=== PATIENT | female | born 1955 | race Caucasian/White ===

== ENCOUNTER → 2020-02-16 | Outpatient (CLI) | payer OTHER ==
--- NOTE | 2020-02-17 13:38 | MM ---
Reason for exam: screening (asymptomatic). Last mammogram was performed 2 years and 5 months ago. History: Patient is postmenopausal. Benign excisional biopsy of the right breast, 1989. Physical Findings: A clinical breast exam by your physician is recommended on an annual basis and results should be correlated with mammographic findings. MG Screening Mammo w CAD Bilateral CC and MLO view(s) were taken. Prior study comparison: September 11, 2017, bilateral MG screening mammo w CAD. June 25, 2016, bilateral MG screening mammo w CAD. The breast tissue is heterogeneously dense. This may lower the sensitivity of mammography. There is a tiny chronic nodularity in the left breast. There is no discrete abnormality. ASSESSMENT: Negative, BI-RAD 1 RECOMMENDATION: Routine screening mammogram of both breasts in 1 year.
== END | disposition home or self-care (01) ==
LOC: MERGE 11-01 08:40 → RADMAMWWP 16:44
PROVIDERS: ATTEND Family Medicine
DX: Z12.31 Encounter for screening mammogram for malignant neoplasm of breast (principal)
CPT/HCPCS: 77067

== ENCOUNTER → 2021-04-09 | Outpatient (CLI) | payer OTHER ==
--- NOTE | 2021-04-10 13:55 | MM ---
Reason for exam: screening (asymptomatic). Last mammogram was performed 1 year and 2 months ago. History: Patient is postmenopausal. Family history of breast cancer in maternal cousin. Benign excisional biopsy of the right breast, 1989. Physical Findings: A clinical breast exam by your physician is recommended on an annual basis and results should be correlated with mammographic findings. MG 3D Screening Mammo W/Cad Bilateral CC and MLO view(s) were taken. Prior study comparison: February 16, 2020, bilateral MG screening mammo w CAD. September 11, 2017, bilateral MG screening mammo w CAD. There are scattered fibroglandular densities. There is chronic nodularity in the right breast, stable. No significant changes when compared with prior studies. ASSESSMENT: Benign, BI-RAD 2 RECOMMENDATION: Routine screening mammogram of both breasts in 1 year.
== END | disposition home or self-care (01) ==
LOC: RADMAMWWP 07:30
PROVIDERS: ATTEND Family Medicine
DX: Z12.31 Encounter for screening mammogram for malignant neoplasm of breast (principal); Z78.0 Asymptomatic menopausal state; Z80.3 Family history of malignant neoplasm of breast
CPT/HCPCS: 77063; 77067

== ENCOUNTER 2022-04-22 09:40 | Day surgery (SDC) | payer MEDICARE ==
[2022-04-22] MEDS ORDERED: LACTATED RINGERS 1,000 ML IV SCH (10:07)
[2022-04-22 10:17] VITALS: TEMP 97.2
[2022-04-22] MEDS ORDERED: LIDOCAINE 2% INJ 20 MG/ML (2 ML VIAL) ONE (10:25)
[2022-04-22] MEDS ORDERED: PROPOFOL 10 MG/ML 20 ML VIAL IV ONE (10:25)
--- NOTE | 2022-04-22 10:42 | P.PCN ---
Date of Procedure: 04/22/22 Procedure(s) Performed: BRIEF HISTORY: Patient is a 66-year-old, pleasant, white female scheduled for an upper endoscopy as a part of evaluation of GERD and intermittent dysphagia to solids for the last 1 year duration. She does have history of GERD and hiatal hernia status post fundoplication approximately 5 years ago. She has recurrent reflux symptoms and presently on omeprazole 20 mg daily with some relief. She is scheduled for an upper endoscopy with possible dilation today.. PROCEDURE PERFORMED: Esophagogastroduodenoscopy with biopsy. PREOPERATIVE DIAGNOSIS: Long-standing history of GERD and intermittent dysphagia to solids. IV sedation per anesthesia. PROCEDURE: After informed consent was obtained, the patient was brought into the endoscopy unit. IV sedation was administered by Anesthesia under continuous monitoring. Initially the Olympus GIF-140 video endoscope was inserted into the mouth. Esophagus intubated without any difficulty. It was gradually advanced into the stomach and duodenum and carefully examined. The bulb and the second part of the duodenum appeared normal. The scope at this time was withdrawn to the stomach, adequately insufflated with air, and upon careful examination, mucosa of the antrum had scattered erosions and biopsies were done from this area. Mucosa of the body, body, cardia and the fundus appeared normal. The scope was then withdrawn into the esophagus. The GE junction was located at 39 cm from the incisors. Evidence of previous fundoplication noted. The esophagus appeared normal. There was no evidence of esophageal stricture and were no erosions or ulcerations seen. Biopsies were done from the mid and distal esophagus to rule out years of age esophagitis and the patient tolerated the procedure well. IMPRESSION: 1. Normal-appearing esophagus with no evidence of esophagitis or esophageal stricture. 2. Mild antral gastritis. RECOMMENDATIONS: The findings of this examination were discussed with the patient as well as a family. She was advised to follow with the biopsy results. Continue with omeprazole 20 mg daily and follow antireflux measures. She will be seen in office in 3-4 weeks..
[2022-04-22 11:01] VITALS: BP 163/90; PULSE 84; RESP 18
== END 2022-04-22 11:16 | disposition home or self-care (01) ==
LOC: ORWHC2ENDO 09:40
PROVIDERS: ATTEND Internal Medicine Gastroenterology
DX: K29.50 Unspecified chronic gastritis without bleeding (principal); K44.9 Diaphragmatic hernia without obstruction or gangrene; K21.00 Gastro-esophageal reflux disease with esophagitis, without bleeding
CPT/HCPCS: 88305; 43239; J2704; J2001

== ENCOUNTER → 2022-04-25 | Outpatient (CLI) | payer MEDICARE ==
--- NOTE | 2022-04-28 08:26 | MM ---
Reason for Exam: Screening (asymptomatic). Last mammogram was performed 1 year(s) and 1 month(s) ago. Patient History: Menarche at age 13. First Full-Term at age 18. Postmenopausal. Patient has history of breast feeding. 1989, Benign Excisional Biopsy on the right side. Maternal cousin had breast cancer. Risk Values: Nelida 5 year model risk: 1.4%. NCI Lifetime model risk: 5.4%. Prior Study Comparison: 09/11/2017 Bilateral Screening Mammogram, [facility]. 02/16/2020 Bilateral Screening Mammogram, [facility]. 04/09/2021 Bilateral Screening Mammogram, [facility]. Tissue Density: There are scattered fibroglandular densities. Findings: Analyzed By CAD. There is no suspicious group of microcalcifications or new suspicious mass in either breast. Overall Assessment: Negative, BI-RAD 1 Management: Screening Mammogram of both breasts in 1 year. A clinical breast exam by your physician is recommended on an annual basis and results should be correlated with mammographic findings. Electronically signed and approved by: Neeraj Oquendo M.D.
== END | disposition home or self-care (01) ==
LOC: RADMAMWWP 10:04
PROVIDERS: ATTEND Family Medicine
DX: Z12.31 Encounter for screening mammogram for malignant neoplasm of breast (principal); Z78.0 Asymptomatic menopausal state; Z80.3 Family history of malignant neoplasm of breast
CPT/HCPCS: 77063; 77067

== ENCOUNTER 2022-07-18 08:30 | Day surgery (SDC) | payer MEDICARE ==
[2022-07-16 11:53] VITALS: BMI 32.2
[~2022-07-18 08:30] MED LIST: LACTATED RINGERS 1,000 ML IV SCH; LIDOCAINE 1% (10MG/ML) FOR IV START INTRADERMA PRN; ONDANSETRON 4 MG/2 ML VIAL IVP PRN
[2022-07-18 09:23] VITALS: TEMP 98.9
[2022-07-18] MEDS ORDERED: PROPOFOL 10 MG/ML 20 ML VIAL IV ONE (10:16)
[2022-07-18] MEDS ORDERED: LIDOCAINE 2% INJ 20 MG/ML (2 ML VIAL) ONE (10:16)
--- NOTE | 2022-07-18 10:39 | P.PCN ---
Date of Procedure: 07/18/22 Procedure(s) Performed: BRIEF HISTORY: Patient is a 66-year-old pleasant white female scheduled for an elective colonoscopy as a part of screening for colon cancer. PROCEDURE PERFORMED: Colonoscopy. PREOPERATIVE DIAGNOSIS: Screening for colon cancer. IV sedation per Anesthesia. PROCEDURE: After informed consent was obtained, the patient, was brought into the endoscopy unit. IV sedation was administered by Anesthesia under continuous monitoring. Digital rectal examination was normal. Initially the Olympus CF-160 flexible video colonoscope was then inserted in the rectum, gradually advanced into the cecum without any difficulty. Careful examination was performed as the scope was gradually being withdrawn. Ileocecal valve and the appendiceal orifice were visualized and appeared normal. Prep was excellent. Mucosa of the cecum, ascending colon, transverse colon, descending colon, sigmoid colon, and rectum appeared normal. Moderate sigmoid diverticulosis Retroflexion was performed in the rectum and no lesions were seen. The patient tolerated the procedure well. IMPRESSION: Normal-appearing colon from rectum to cecum with no evidence of colorectal neoplasia Moderate sigmoid diverticulosis. RECOMMENDATIONS: Findings of this examination were discussed with the patient as well as a family.. She was advised to have a repeat screening colonoscopy in 10 years
[2022-07-18 10:45] VITALS: RESP 16
[2022-07-18 11:01] VITALS: BP 136/72; PULSE 68
== END 2022-07-18 11:22 | disposition home or self-care (01) ==
LOC: ORWHC2ENDO 08:30
PROVIDERS: ATTEND Internal Medicine Gastroenterology
DX: Z12.11 Encounter for screening for malignant neoplasm of colon (principal); K57.30 Diverticulosis of large intestine without perforation or abscess without bleeding; I10 Essential (primary) hypertension; K21.9 Gastro-esophageal reflux disease without esophagitis; Z79.83 Long term (current) use of bisphosphonates; Z79.899 Other long term (current) drug therapy
CPT/HCPCS: J2704; J2001; G0121

== ENCOUNTER → 2022-12-08 | Outpatient (CLI) | payer MEDICARE ==
--- NOTE | 2022-12-08 14:22 | FL ---
EXAMINATION TYPE: FL barium swallow DATE OF EXAM: 12/08/2022 COMPARISON: None HISTORY: Dysphagia TECHNIQUE: A air contrast UGI study is performed. FINDINGS: Contrast passes through the esophagus without intraluminal or extramural defects. There is hesitation passing through the gastroesophageal junction. Tertiary contractions are evident. No persistent sten osis is identified. Reflux was not identified. In the horizontal drinking position secondary and tert iary contractions are evident. There is incomplete stripping esophageal bolus with large volume remai elmira within the esophagus. IMPRESSIONS: 1. Presbyesophagus. 2. Hesitancy passing through the gastroesophageal junction. 3. Incomplete stripping of the esophageal bolus horizontal drinking position.
== END | disposition home or self-care (01) ==
LOC: RADUSWWP 09:51
PROVIDERS: ATTEND Family Medicine
DX: K21.9 Gastro-esophageal reflux disease without esophagitis (principal); K22.89 Other specified disease of esophagus; R13.10 Dysphagia, unspecified
CPT/HCPCS: 74220

== ENCOUNTER → 2023-05-08 | Outpatient (CLI) | payer MEDICARE ==
--- NOTE | 2023-05-11 20:44 | MM ---
Reason for Exam: Screening (asymptomatic). Last screening mammogram was performed 12 month(s) ago. Patient History: Menarche at age 13. First Full-Term at age 18. Postmenopausal. Patient has history of breast feeding. 1989, Benign Excisional Biopsy on the right side. Maternal cousin had breast cancer. Risk Values: Nelida 5 year model risk: 1.4%. NCI Lifetime model risk: 5.2%. Prior Study Comparison: 02/16/2020 Bilateral Screening Mammogram, [facility]. 04/09/2021 Bilateral Screening Mammogram, [facility]. 04/25/2022 Bilateral MG 3D screening mammo w/cad, [facility]. Tissue Density: There are scattered fibroglandular densities. Findings: Analyzed By CAD. There is no suspicious group of microcalcifications or new suspicious mass in either breast. Overall Assessment: Negative, BI-RAD 1 Management: Screening Mammogram of both breasts in 1 year. . Patient should continue monthly self-breast exams. A clinical breast exam by your physician is recommended on an annual basis. This exam should not preclude additional follow-up of suspicious palpable abnormalities. Note on Nelida scores and lifetime risk: 1. A Nelida score greater than 3% is considered moderate risk. If this is the case, consider specialist referral to assess eligibility for a risk reducing agent. 2. If overall lifetime risk for the development of breast cancer is 20% or higher, the patient may qualify for future screening with alternating mammogram and breast MRI. Electronically signed and approved by: Becky Liao M.D. Radiologist
== END | disposition home or self-care (01) ==
LOC: RADMAMWWP 10:55
PROVIDERS: ATTEND Family Medicine
DX: Z12.31 Encounter for screening mammogram for malignant neoplasm of breast (principal); Z80.3 Family history of malignant neoplasm of breast; Z78.0 Asymptomatic menopausal state
CPT/HCPCS: 77063; 77067

== ENCOUNTER → 2024-06-28 | Outpatient (CLI) | payer MEDICARE ==
--- NOTE | 2024-06-28 11:35 | MM ---
Reason for Exam: Screening (asymptomatic). Last mammogram was performed 1 year(s) and 2 month(s) ago. Patient History: Menarche at age 13. First Full-Term at age 18. Postmenopausal. Patient has history of breast feeding. 1989, Benign Excisional Biopsy on the right side. Maternal cousin had breast cancer. Risk Values: Nelida 5 year model risk: 1.4%. NCI Lifetime model risk: 5.0%. Prior Study Comparison: 04/09/2021 Bilateral Screening Mammogram, [facility]. 04/25/2022 Bilateral MG 3D screening mammo w/cad, [facility]. 05/08/2023 Bilateral MG 3D screening mammo w/cad, [facility]. Tissue Density: There are scattered areas of fibroglandular density. Findings: Analyzed By CAD. There is no suspicious group of microcalcifications or new suspicious mass in either breast. There is no suspicious group of microcalcifications in either breast.There is an approximate 5 mm asymmetric nodular density lower outer left breast 6.4 cm additional views are recommended. No suspicious consultations seen within either breast. Overall Assessment: Incomplete: need additional imaging evaluation, BI-RAD 0 Management: Diagnostic Mammogram of the left breast. . Patient should continue monthly self-breast exams. A clinical breast exam by your physician is recommended on an annual basis. This exam should not preclude additional follow-up of suspicious palpable abnormalities. Note on Nelida scores and lifetime risk: 1. A Nelida score greater than 3% is considered moderate risk. If this is the case, consider specialist referral to assess eligibility for a risk reducing agent. 2. If overall lifetime risk for the development of breast cancer is 20% or higher, the patient may qualify for future screening with alternating mammogram and breast MRI. [facility], , 06/28/2024 11:32 AM. Electronically signed and approved by: Zackary Hall M.D. Radiologis
== END | disposition home or self-care (01) ==
LOC: RADMAMWWP 11:12
PROVIDERS: ATTEND Family Medicine
DX: Z12.31 Encounter for screening mammogram for malignant neoplasm of breast (principal); R92.323 Mammographic fibroglandular density, bilateral breasts; Z78.0 Asymptomatic menopausal state; Z80.3 Family history of malignant neoplasm of breast
CPT/HCPCS: 77063; 77067

== ENCOUNTER → 2024-07-01 | Outpatient (CLI) | payer MEDICARE ==
--- NOTE | 2024-07-04 09:52 | MM ---
Reason for Exam: Additional evaluation requested from abnormal screening. Last screening mammogram was performed less than 1 month ago. Patient History: Menarche at age 13. First Full-Term at age 18. Postmenopausal. Patient has history of breast feeding. 1989, Benign Excisional Biopsy on the right side. Maternal cousin had breast cancer. Risk Values: Neldia 5 year model risk: 1.4%. NCI Lifetime model risk: 5.0%. Prior Study Comparison: 04/25/2022 Bilateral MG 3D screening mammo w/cad, [facility]. 05/08/2023 Bilateral MG 3D screening mammo w/cad, [facility]. 06/28/2024 Bilateral MG 3D screening mammo w/cad, [facility]. Tissue Density: Left: There are scattered areas of fibroglandular density. Findings: Analyzed By CAD. Asymmetric density left breast does not persist with certainty on additional views obtained. Precautionary six-month follow-up of the left breast is advised. Overall Assessment: Probably benign, BI-RAD 3 Management: Diagnostic Mammogram of the left breast in 6 months. . Results were given to the patient verbally at the time of exam. Patient should continue monthly self-breast exams. A clinical breast exam by your physician is recommended on an annual basis. This exam should not preclude additional follow-up of suspicious palpable abnormalities. Note on Nelida scores and lifetime risk: 1. A Nelida score greater than 3% is considered moderate risk. If this is the case, consider specialist referral to assess eligibility for a risk reducing agent. 2. If overall lifetime risk for the development of breast cancer is 20% or higher, the patient may qualify for future screening with alternating mammogram and breast MRI. [facility], , 07/01/2024 11:55 AM. Electronically signed and approved by: Zackary Hall M.D. Radiologis
== END | disposition home or self-care (01) ==
LOC: RADMAMWWP 11:38
PROVIDERS: ATTEND Family Medicine
DX: R92.8 Other abnormal and inconclusive findings on diagnostic imaging of breast (principal); R92.322 Mammographic fibroglandular density, left breast; Z78.0 Asymptomatic menopausal state; Z80.3 Family history of malignant neoplasm of breast
CPT/HCPCS: 77061; 77065